=== PATIENT | male | born 1990 | race Caucasian/White ===

== ENCOUNTER 2020-05-24 10:12 | Outpatient (REF) | payer OTHER, SELFPAY | END 2020-05-24 10:13 | disposition home or self-care (01) | LOC: HO.LAB 10:12 | PROVIDERS: Visit Provider Internal Medicine | DX: Z20.822 Contact with and (suspected) exposure to COVID-19 (principal) | CPT/HCPCS: 36415; C9803; U0003 ==

== ENCOUNTER 2020-08-29 08:29 | Outpatient (REF) | payer OTHER, SELFPAY ==
[2020-08-29 08:48] LABS: COVID-19 Test Negative (Negative)
== END 2020-08-29 08:30 | disposition home or self-care (01) ==
LOC: HO.LAB 08:29
PROVIDERS: Visit Provider Internal Medicine
DX: Z20.822 Contact with and (suspected) exposure to COVID-19 (principal)
CPT/HCPCS: 36415; 87635; C9803